=== PATIENT | female | born 1960 | race Caucasian/White ===

== ENCOUNTER 2016-10-06 14:37 | Emergency (ER) | payer OTHER ==
[~2016-10-06 14:37] MED LIST: DENIES HOME MEDS
[2016-10-06 15:45] LABS: BASOPHILS 0.3 %; BASOPHILS ABSOLUTE 0.02 10/3/uL (0.0-0.16); EOSINOPHILS 1.6 %; EOSINOPHILS ABSOLUTE 0.11 10/3/uL (0.0-0.53); HEMATOCRIT 35.4 % (36.0-48.0); IMMATURE GRANULOCYTES 0.1 %; IMMATURE GRANULOCYTES ABSOLUTE 0.01 10/3/uL (0.0-0.11); LYMPHOCYTES ABSOLUTE 2.62 10/3/uL (0.67-4.30); MEAN CORPUS HGB CONC 33.9 g/dL (32.0-36.0); MEAN CORPUSCULAR HEMOGLOB 32.3 pg (26.0-34.0); MEAN CORPUSCULAR VOLUME 95.4 fL (80-100); MEAN PLATELET VOLUME 9.1 fL (9.2-13.0); MONOCYTES 5.1 %; MONOCYTES ABSOLUTE 0.36 10/3/uL (0.21-1.20); NEUTROPHILS 55.9 %; NEUTROPHILS ABSOLUTE 3.96 10/3/uL (2.02-8.40); PLATELET COUNT 337 10/3/uL (150-400); RBC DISTRIBUTION WIDTH 12.8 % (12.0-16.0); RED CELL COUNT 3.71 10/6/uL (4.0-5.6); WHITE BLOOD CELLS 7.1 10/3/uL (4.5-10.5)
[2016-10-06 15:46] LABS: MANUAL DIFF NO %
[2016-10-06 15:51] LABS: ASCORBIC ACID (UR NOT ORDER) NEG (NEG); BILIRUBIN, URINE NEGATIVE (NEG); ER URINALYSIS TAT 0 Hrs 14 Mins; KETONE, URINE NEGATIVE (NEG); LEUKOCYTE ESTERASE(NOT OR NEG (NEG); WBC (NOT ORDERED) (RFLEX) < 1 (0-5)
[2016-10-06 15:52] LABS: NITRITE (URINE) POS (NEG)
[2016-10-06 15:59] LABS: A/G RATIO 1.3 (0.7-1.9); BUN (BLOOD UREA NITROGEN) 5 MG/DL (6-23); CALCIUM, SERUM 8.8 MG/DL (8.5-10.4); CHLORIDE, SERUM 110 MMOL/L (96-112); CO2 (CARBON DIOXIDE) 26 MMOL/L (24-34); CREATININE 0.92 MG/DL (0.55-1.02); GFR AFRICAN AMERICAN 82 ML/MIN (>=60); GFR NON AFRICAN AMERICAN 71 ML/MIN (>=60); GLOBULIN 3.2 G/DL (2.5-4.1); GLUCOSE, SERUM 90 MG/DL (60-99); POTASSIUM, SERUM 3.6 MMOL/L (3.5-5.3); SGOT(AST) 15 U/L (5-40); SGPT(ALT) 26 U/L (5-65); SODIUM, SERUM 146 MMOL/L (135-148); TOTAL BILIRUBIN 0.3 MG/DL (0-1.2); TOTAL PROTEIN 7.2 G/DL (6.0-8.5)
[2016-10-06 16:00] LABS: ALKALINE PHOSPHATASE 103 U/L (45-117)
[2016-10-06 20:53] LABS: LACTATE 1.4 MMOL/L (0.3-2.4)
== END 2016-10-06 21:45 | disposition home or self-care (01) ==
LOC: ER 14:37
PROVIDERS: Emergency Medicine; Specialist
DX: N39.0 Urinary tract infection, site not specified (principal); F17.200 Nicotine dependence, unspecified, uncomplicated; F31.9 Bipolar disorder, unspecified; Z88.0 Allergy status to penicillin; Z88.8 Allergy status to other drugs, medicaments and biological substances
CPT/HCPCS: 80053; 81001; 83605; 83690; 85025; 87040; 96374; 99284; J1885

== ENCOUNTER 2016-10-10 09:34 | Observation (INO) | payer OTHER ==
--- NOTE | ~2016-10-10 | DS ---
Discharge Summary [facility] [address] [place]. [address] NAME: NICOLAS RAMOS : 62 STATUS : DIS Roel PAT#: [id number] AGE: 55 ADM/REG DATE : 10/10/16 MR#: [id number] REPORT SERV DATE: 10/13/16 DICTATED BY: MARCELO CHU DATE: 10/11/16 REPORT STATUS : Draft TRANSCRIBED BY: CAITLIN DATE: 10/11/16 ADMISSION DATE: 10/10/2016 DISCHARGE DATE: 10/11/2016 DIAGNOSES: 1. Febrile illness. 2. Bronchitis, secondary to suspected virus. 3. Nausea. CONSULTANTS: JARRELL Bhat M.D. and Kyle Llily M.D.. FOLLOWUP: The patient is to follow up with Dr. Bhat as the patient is already scheduled in October. The patient is to follow up with her primary care physician in one to two weeks. DISCHARGE MEDICATIONS: Levaquin 750 mg p.o. daily for five days. The patient may continue with her home medications except to stop ibuprofen and also to continue with Pepcid 20 mg p.o. b.i.d. Please refer to the MAR. IMAGING: CT of the abdomen and pelvis without contrast showing no evidence of acute abnormality within abdomen or pelvis, status post cholecystectomy and hysterectomy. Minimal fat-containing umbilical hernia. A small right renal cyst not well visualized without IV contrast. HOSPITAL COURSE: Please see H and P dictated by Dr. Howell. This is a 55-year-old female, who reports some intermittent abdominal discomfort over the past couple of months being worked up as an outpatient. She has been referred to Dr. Bhat, GI physician for workup for which the patient has appointment is in early October. The patient's CT of the abdomen and pelvis on 10/02/2016, to evaluate for renal stones. However, during that time, there was findings of a small 3 mm calcified density at the posterior pancreatic head very close to the junction of the distal common bile duct and pancreatic duct, and the patient was referred to GI for followup as an outpatient. However, the patient re-presented to [facility] ER for complaints of fever, as stated she had a fever of 101 while at home. She was admitted under observation by Dr. Howell. Blood cultures were ordered, but pending at the time of discharge, however, white cell count was within normal limits at 4.0 and 7.7 at the time of discharge. The patient had a negative influenza swab. Also, LFTs were nondiagnostic with a normal T bilirubin. The patient remained afebrile during her hospital stay. She was initiated on empiric Levaquin by Dr. Howell, which was continued. She did have a repeat CT of the abdomen and pelvis in the ER, which was nondiagnostic and did not reveal any calcified stones or calcification at the pancreatic head, overall benign. CT of abdomen and pelvis, no signs of common bowel duct dilatation. T bilirubin was within normal limits. LFTs nondiagnostic. Although, GI was consulted by Dr. Howell on admission considering the patient already had an appointment with Dr. Bhat for some intermittent nausea and intermittent abdominal pain. However, upon seeing the patient on 10/11/2016, the patient states she was feeling better and wanted to return to home, and also was noted to be eating and maintaining her diet. The patient and family were informed that her GI physician was consulted and Dr. Goncalves was director of clinical applications for Dr. Bhat and will be coming to see the Discharge Summary [address] [address] NAME: NICOLAS RAMOS : 62 STATUS : DIS Roel PAT#: [id number] AGE: 55 ADM/REG DATE : 10/10/16 MR#: [id number] REPORT SERV DATE: 10/13/16 DICTATED BY: MARCELO CHU DATE: 10/11/16 REPORT STATUS : Draft TRANSCRIBED BY: CAITLIN DATE: 10/11/16 patient later on that day. However, the patient refused to wait to see the GI physician and wants to return to home that day as soon as possible. The patient was discharged home in stable condition. Afebrile, clinically, and hemodynamically stable. The patient was informed to follow up with her primary care as an outpatient and to follow up with Dr. Bhat as already ordered as an outpatient. ADDENDUM: The patient was preparing for discharge when Dr. Goncalves GI physician came in to the chowdary, he was able to evaluate the patient before she and family decided to leave and also agreed that the patient should be followed up as an outpatient. [facility]/MODL Marcelo Chu M.D. / [id number] / [id number] CC: Radha Martinez M.D. Henry Paik, M.D.
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
[2016-10-10 09:34] LABS: BASOPHILS 0.5 %; BASOPHILS ABSOLUTE 0.02 10/3/uL (0.0-0.16); EOSINOPHILS ABSOLUTE 0.04 10/3/uL (0.0-0.53); HEMOGLOBIN 10.1 g/dL (12.0-16.0); IMMATURE GRANULOCYTES 0.3 %; IMMATURE GRANULOCYTES ABSOLUTE 0.01 10/3/uL (0.0-0.11); LYMPHOCYTES 39.8 %; LYMPHOCYTES ABSOLUTE 1.58 10/3/uL (0.67-4.30); MEAN CORPUS HGB CONC 34.1 g/dL (32.0-36.0); MEAN CORPUSCULAR HEMOGLOB 32.5 pg (26.0-34.0); MEAN CORPUSCULAR VOLUME 95.2 fL (80-100); MEAN PLATELET VOLUME 9.4 fL (9.2-13.0); MONOCYTES 8.6 %; MONOCYTES ABSOLUTE 0.34 10/3/uL (0.21-1.20); NEUTROPHILS 49.8 %; NEUTROPHILS ABSOLUTE 1.98 10/3/uL (2.02-8.40); PLATELET COUNT 247 10/3/uL (150-400); RBC DISTRIBUTION WIDTH 12.9 % (12.0-16.0); RED CELL COUNT 3.11 10/6/uL (4.0-5.6)
[2016-10-10 09:36] LABS: ER CBC TAT 0 Hrs 08 Mins; HEMATOCRIT 29.6 % (36.0-48.0); MANUAL DIFF NO %
[2016-10-10 09:50] LABS: A/G RATIO 1.1 (0.7-1.9); ALBUMIN 3.3 G/DL (3.5-5.0); ALKALINE PHOSPHATASE 98 U/L (45-117); BUN (BLOOD UREA NITROGEN) 7 MG/DL (6-23); CALCIUM, SERUM 7.9 MG/DL (8.5-10.4); CHLORIDE, SERUM 111 MMOL/L (96-112); CO2 (CARBON DIOXIDE) 25 MMOL/L (24-34); CREATININE 0.84 MG/DL (0.55-1.02); GFR AFRICAN AMERICAN 91 ML/MIN (>=60); GFR NON AFRICAN AMERICAN 79 ML/MIN (>=60); GLOBULIN 3.1 G/DL (2.5-4.1); GLUCOSE, SERUM 91 MG/DL (60-99); POTASSIUM, SERUM 3.2 MMOL/L (3.5-5.3); SGOT(AST) 41 U/L (5-40); SGPT(ALT) 46 U/L (5-65); SODIUM, SERUM 142 MMOL/L (135-148); TOTAL BILIRUBIN 0.2 MG/DL (0-1.2); TOTAL PROTEIN 6.4 G/DL (6.0-8.5)
[2016-10-10 10:39] LABS: INFLUENZA A SCREEN NEGATIVE (NEGATIVE); INFLUENZA B SCREEN NEGATIVE (NEGATIVE)
[2016-10-10 12:36] LABS: ASCORBIC ACID (UR NOT ORDER) NEG (NEG); BILIRUBIN, URINE NEGATIVE (NEG); ER URINALYSIS TAT 0 Hrs 16 Mins; KETONE, URINE NEGATIVE (NEG); LEUKOCYTE ESTERASE(NOT OR NEG (NEG); NITRITE (URINE) POS (NEG); WBC (NOT ORDERED) (RFLEX) < 1 (0-5)
[2016-10-10 13:46] LABS: LACTATE 0.5 MMOL/L (0.3-2.4)
[2016-10-10] MEDS ORDERED: AMB10 PO (15:32)
[2016-10-10] MEDS ORDERED: NORCO1 TA1 PO (15:33)
[2016-10-10] MEDS ORDERED: VALIUM10 MG PO (15:33)
[2016-10-10] MEDS ORDERED: ULTRAM50 PO (15:36)
[2016-10-10] MEDS ORDERED: ADVIL PO (15:37)
[2016-10-10] MEDS ORDERED: VANTIN200 MG PO (15:39)
[2016-10-11 04:39] LABS: BASOPHILS 0 %; EOSINOPHILS 0.1 %; EOSINOPHILS ABSOLUTE 0.01 10/3/uL (0.0-0.53); HEMATOCRIT 29.6 % (36.0-48.0); HEMOGLOBIN 10.3 g/dL (12.0-16.0); IMMATURE GRANULOCYTES 0.1 %; IMMATURE GRANULOCYTES ABSOLUTE 0.01 10/3/uL (0.0-0.11); LYMPHOCYTES 9.5 %; LYMPHOCYTES ABSOLUTE 0.73 10/3/uL (0.67-4.30); MANUAL DIFF NO %; MEAN CORPUS HGB CONC 34.8 g/dL (32.0-36.0); MEAN CORPUSCULAR VOLUME 94.9 fL (80-100); MEAN PLATELET VOLUME 9.6 fL (9.2-13.0); MONOCYTES 1.6 %; MONOCYTES ABSOLUTE 0.12 10/3/uL (0.21-1.20); NEUTROPHILS 88.7 %; NEUTROPHILS ABSOLUTE 6.81 10/3/uL (2.02-8.40); PLATELET COUNT 247 10/3/uL (150-400); RBC DISTRIBUTION WIDTH 12.7 % (12.0-16.0); RED CELL COUNT 3.12 10/6/uL (4.0-5.6); WHITE BLOOD CELLS 7.7 10/3/uL (4.5-10.5)
[2016-10-11 04:55] LABS: BUN (BLOOD UREA NITROGEN) 10 MG/DL (6-23); C-REACTIVE PROTEIN 17.4 MG/L (<8.0); CALCIUM, SERUM 8.4 MG/DL (8.5-10.4); CHLORIDE, SERUM 111 MMOL/L (96-112); CO2 (CARBON DIOXIDE) 25 MMOL/L (24-34); GFR AFRICAN AMERICAN 114 ML/MIN (>=60); GFR NON AFRICAN AMERICAN 98 ML/MIN (>=60); SODIUM, SERUM 143 MMOL/L (135-148)
[2016-10-11 04:57] LABS: GLUCOSE, SERUM 169 MG/DL (60-99); POTASSIUM, SERUM 4.2 MMOL/L (3.5-5.3)
[2016-10-11 05:19] LABS: PROLACTIN 8.4 NG/ML
[2016-10-11 05:56] LABS: SED RATE 20 MM/HR (0-20)
[2016-10-11 15:09] LABS: INFLUENZA A SCREEN NEGATIVE (NEGATIVE); INFLUENZA B SCREEN NEGATIVE (NEGATIVE)
[2016-10-11] MEDS ORDERED: PEP20 PO (16:40)
[2016-10-11] MEDS ORDERED: LEVAQUIN750 MG PO (16:40)
== END 2016-10-11 17:39 | disposition home or self-care (01) ==
LOC: ER 09:34 → CDU1 15:35 → CDU2 17:21
PROVIDERS: Emergency Medicine; Internal Medicine
DX: R50.9 Fever, unspecified (principal); J40 Bronchitis, not specified as acute or chronic; Z90.710 Acquired absence of both cervix and uterus; N20.0 Calculus of kidney; Z88.0 Allergy status to penicillin; Z88.8 Allergy status to other drugs, medicaments and biological substances; F17.210 Nicotine dependence, cigarettes, uncomplicated; Z79.899 Other long term (current) drug therapy; F43.10 Post-traumatic stress disorder, unspecified; F31.9 Bipolar disorder, unspecified
CPT/HCPCS: 71010; 71020; 74176; 80048; 80053; 81001; 83605; 83690; 84146; 85025; 85652; 86140; 87040; 87804; 93005; 96361; 96365; 96366; 96372; 96374; 96375; 96376; 99285; A9270-GY; G0378; J1885; J1956; J2405; J3411; J3480